=== PATIENT | female | born 1955 | race American Indian/Alaskan Native ===

== ENCOUNTER 2017-07-19 09:26 | Emergency (ER) | payer MEDICARE ==
[2017-07-19 11:37] LABS: Bilirubin,Urine NEG (Negative); Blood,Urine SM (Negative); Ketones,Urine NEG (Negative); Leukocyte Esterase,Urine NEG (Negative); Nitrite,Urine NEG (Negative); Protein,Urine <15 mg/dL mg/dL (Negative); Urobilinogen,Urine < 2.0 mg/dL (<2.0); WBC,Urine < 1.0 /HPF (0.0-6.0)
[2017-07-19 11:43] LABS: Albumin 4.4 g/dL (3.9-5); Albumin/Globulin Ratio 1.2 %; Bilirubin,Total 0.2 mg/dL (0.1-1.2); Calcium 9.3 mg/dL (8.4-10.2); Chloride 100.1 mmol/L (98-107); Total Protein 8.1 g/dL (6.3-8.2)
[2017-07-19 11:47] LABS: Basophils % (Auto) 0.5 % (0.0-1.8); Eosinophils % (Auto) 2.3 % (0.0-4.3); Hematocrit 36.9 % (30.3-42.9); Hemoglobin 12.3 gm/dl (10.1-14.3); Mean Corpuscular HGB Conc 33 % (30-34); Mean Corpuscular Hemoglobin 31 pg (28-32); Mean Corpuscular Volume 93 fl (79-97); Platelet Count 257 K/mm3 (140-440); Red Blood Count 3.99 M/mm3 (3.65-5.03); Red Cell Distribution Width 13.6 % (13.2-15.2); White Blood Count 7.4 K/mm3 (4.5-11.0)
[2017-07-19] MEDS ORDERED: ZOFRAN IV ONE (17:26)
[2017-07-19] MEDS ORDERED: MORPHINE IV ONE (17:26)
[2017-07-19] MEDS ORDERED: TORADOL IV ONE (17:26)
[2017-07-19] MEDS ORDERED: NACL 0.9% 1000 ML 1,000 ML IV ONE (17:26)
--- NOTE | 2017-07-19 17:28 | Emergency Department Report ---
ED Abdominal Pain HPI - General Chief Complaint: Abdominal Pain Stated Complaint: RT SIDE PAIN Time Seen by Provider: 07/19/17 17:07 Source: patient Mode of arrival: Ambulatory Limitations: No Limitations - History of Present Illness MD Complaint: flank pain -: Gradual Location: LLQ, L flank Radiation: none Migration to: no migration Severity: moderate Severity scale (0 -10): 8 Consistency: constant Improves With: nothing Worsens With: nothing Associated Symptoms: dysuria. denies: nausea, vomiting, diarrhea, fever, chills , constipation, hematemesis, hematochezia, melena, hematuria, anorexia, syncope - Related Data Home Medications Medication Instructions Recorded Confirmed Last Taken Amlodipine Besylate/Benazepril 10 mg PO DAILY 07/19/17 07/19/17 Unknown [Lotrel 10-20 mg] Escitalopram [Lexapro] 10 mg PO DAILY 07/19/17 07/19/17 Unknown Estradiol 0.5 mg PO DAILY 07/19/17 07/19/17 Unknown Naproxen [Naprosyn TAB] 500 mg PO DAILY 07/19/17 07/19/17 Unknown Pramipexole [Mirapex] 0.125 mg PO QPM 07/19/17 07/19/17 Unknown Rosuvastatin (Nf) [Crestor] 20 mg PO QHS 07/19/17 07/19/17 Unknown Allergies Allergy/AdvReac Type Severity Reaction Status Date / Time No Known Allergies Allergy Unverified 07/19/17 10:27 ED Review of Systems ROS: Stated complaint: RT SIDE PAIN Other details as noted in HPI Comment: All other systems reviewed and negative ED Past Medical Hx - Past Medical History Previous Medical History?: Yes Hx Hypertension: Yes - Surgical History Past Surgical History?: Yes Additional Surgical History: Hysterectomy, Rt. rotator cuff surgery, Bilat. knee surgery - Social History Smoking Status: Never Smoker Substance Use Type: None - Medications Home Medications: Home Medications Medication Instructions Recorded Confirmed Last Taken Type Amlodipine Besylate/Benazepril 10 mg PO DAILY 07/19/17 07/19/17 Unknown History [Lotrel 10-20 mg] Escitalopram [Lexapro] 10 mg PO DAILY 07/19/17 07/19/17 Unknown History Estradiol 0.5 mg PO DAILY 07/19/17 07/19/17 Unknown History Naproxen [Naprosyn TAB] 500 mg PO DAILY 07/19/17 07/19/17 Unknown History Pramipexole [Mirapex] 0.125 mg PO QPM 07/19/17 07/19/17 Unknown History Rosuvastatin (Nf) [Crestor] 20 mg PO QHS 07/19/17 07/19/17 Unknown History ED Physical Exam - General Limitations: No Limitations General appearance: alert, in no apparent distress - Head Head exam: Present: atraumatic, normocephalic - Eye Eye exam: Present: normal appearance - ENT ENT exam: Present: normal exam, normal orophraynx, mucous membranes moist - Neck Neck exam: Present: normal inspection - Respiratory Respiratory exam: Present: normal lung sounds bilaterally. Absent: respiratory distress - Cardiovascular Cardiovascular Exam: Present: regular rate, normal rhythm. Absent: systolic murmur, diastolic murmur, rubs, gallop - GI/Abdominal GI/Abdominal exam: Present: soft, normal bowel sounds - Extremities Exam Extremities exam: Present: normal inspection - Back Exam Back exam: Present: normal inspection - Neurological Exam Neurological exam: Present: alert, oriented X3 - Psychiatric Psychiatric exam: Present: normal affect, normal mood - Skin Skin exam: Present: warm, dry, intact, normal color. Absent: rash ED Course Vital Signs 07/19/17 07/19/17 07/19/17 10:27 15:23 16:19 Temperature 98.6 F 98 F Pulse Rate 54 L 60 Respiratory 16 18 18 Rate Blood Pressure 142/94 Blood Pressure 157/84 [Right] O2 Sat by Pulse 100 Oximetry 07/19/17 18:01 Temperature Pulse Rate Respiratory 18 Rate Blood Pressure Blood Pressure [Right] O2 Sat by Pulse Oximetry ED Medical Decision Making - Lab Data Result diagrams: 07/19/17 11:11 07/19/17 11:11 Critical care attestation.: If time is entered above; I have spent that time in minutes in the direct care of this critically ill patient, excluding procedure time. ED Disposition Clinical Impression: Abdominal pain Disposition: DC-01 TO HOME OR SELFCARE Is pt being admited?: No Does the pt Need Aspirin: No Condition: Good Instructions: Abdominal Pain (ED) Referrals: ANALIL[facility] PICKENS [Other] - 3-5 Days Time of Disposition: 21:19
--- NOTE | 2017-07-19 21:10 | Cat Scan Report ---
FINAL REPORT PROCEDURE: CT ABDOMEN PELVIS WO CON TECHNIQUE: Computerized axial tomography of the abdomen and pelvis was performed without intravenous contrast. This study is performed without intravascular contrast material and its sensitivity for abdominal and pelvic pathology, including neoplasms, inflammation, abscess, free fluid, thrombosis, arterial dissection and infarction, is reduced compared with a contrast enhanced study. HISTORY: Lt flank pain COMPARISON: No prior studies are available for comparison. FINDINGS: Visualized lower thorax: No significant abnormality. Liver: Normal size and attenuation. Spleen: Normal size and attenuation. Gallbladder and biliary system: Normal. Pancreas: Normal. Adrenals: Normal. Kidneys: There are no kidney stones. There is no hydronephrosis.. GI tract: There is diverticulosis of the sigmoid and left colon. There is no diverticulitis, colitis, obstruction or mass. The appendix is normal.. Lymph nodes and mesentery: Normal. Vasculature: There is calcified plaque in the abdominal aorta. There is no aneurysm.. Bladder: Normal. Reproductive organs: There has been a hysterectomy.. Peritoneum: There is no ascites, free air, abscess or adenopathy.. Musculoskeletal structures: No significant abnormality. Other: None. IMPRESSION: There are no kidney stones. There is no hydronephrosis.. There is diverticulosis of the sigmoid and left colon. There is no diverticulitis, colitis, obstruction or mass. The appendix is normal.. There is calcified plaque in the abdominal aorta. There is no aneurysm.. There has been a hysterectomy.. There is no ascites, free air, abscess or adenopathy.. .
[2017-07-19 21:42] VITALS: BP 145/81
== END 2017-07-19 22:15 | disposition home or self-care (01) ==
LOC: ED 09:26
DX: R10.32 Left lower quadrant pain (principal); R30.0 Dysuria; I10 Essential (primary) hypertension
CPT/HCPCS: 36415; 74176; 80053; 81001; 83690; 85025; 96361; 96374; 96375; 99284; J1885; J2270; J2405; J7030